=== PATIENT | male | born 1935 | race Caucasian/White ===

== ENCOUNTER → 2016-02-15 | Outpatient (CLI) | payer OTHER, BC ==
--- NOTE | 2016-02-16 10:23 | DI ---
History: Productive cough. Also: Prostate carcinoma. Two-view chest x-ray. Prior examination: None. Findings: Overall bone mineral density is markedly increased for age. This applies to the thoracic sp ine as well as ribs, indicating extensive metastatic/osteoblastic bone disease from prostate carcinom a. There is a Mediport catheter entering via the left side, tip at the cavoatrial junction. No cardia c enlargement is seen. This bony tissue renders interpretation of the lungs somewhat difficult but there does appear to be a n infiltrate in the left lung base and possibly a small left pleural effusion. Impression: Probable small subsegmental left lower lobe infiltrate, small pleural effusion. Proper position Mediport catheter Extensive osteoblastic metastatic disease
== END ==
LOC: RAD 16:01
PROVIDERS: ATTEND Nurse Practitioner
DX: R05 Cough (principal); J18.1 Lobar pneumonia, unspecified organism; J90 Pleural effusion, not elsewhere classified; R63.4 Abnormal weight loss; F17.210 Nicotine dependence, cigarettes, uncomplicated
CPT/HCPCS: 71020; 99214; G0463

== ENCOUNTER → 2016-02-24 | Outpatient (CLI) | payer OTHER, BC ==
--- NOTE | 2016-02-24 12:09 | DI ---
PA /LATERAL CHEST X-RAY, 02/24/2016 11:29 AM : Clinical History: Cough with expectoration. Previous Exam: 02/15/2016. There is no acute soft tissue or bony abnormality. Blastic metastases are present in the spine and ri bs. This would be consistent with prostate cancer. Heart size is normal. There is no acute infiltrate or effusion. There is centrilobular emphysema. Mediastinal structures are normal. There are no pulmo nary nodules. Readin. No acute infiltrate or effusion is present. There is centrilobular emphysema. 2. Diffuse blastic metastatic disease is present consistent with prostate cancer.
[2016-02-24 12:23] LABS: BASOPHILS # (AUTO) 0.03 10*3/UL; BASOPHILS % (AUTO) 0.3 % (0-1); EOSINOPHILS % (AUTO) 0.1 % (0-8); HEMATOCRIT 33.8 % (42.0-52.0); HEMOGLOBIN 10.8 g/dL (14.0-18.0); IMM GRAN % (AUTO) 0.6 % (0-5); IMM GRAN# (AUTO) 0.06 10*3/UL; LYMPHOCYTES # (AUTO) 1.18 10*3/uL; LYMPHOCYTES % (AUTO) 11.4 % (10-50); MEAN CORPUSCULAR HEMOGLOBIN 29.6 PG (27-31); MEAN PLATELET VOLUME 8.7 FL (7.4-12.2); MONOCYTES # (AUTO) 1.62 10*3/UL (0.3-0.8); MONOCYTES % (AUTO) 15.7 % (5-15); NEUTROPHILS # (AUTO) 7.44 10*3/UL; NEUTROPHILS % (AUTO) 71.9 % (50-80); RDW COEFFICIENT OF VARIATION 15.1 % (11.5-14.5); RED BLOOD COUNT 3.65 10^6/uL (4.70-6.10); WHITE BLOOD COUNT 10.34 10^3/uL (4.8-10.8)
[2016-02-24 12:35] LABS: PLATELET MORPHOLOGY COMMENT NORMAL MORPHOLOGY (NORM)
== END ==
LOC: MOB RAD 11:30
PROVIDERS: ATTEND Nurse Practitioner Family
DX: J18.1 Lobar pneumonia, unspecified organism (principal); J43.2 Centrilobular emphysema; F17.210 Nicotine dependence, cigarettes, uncomplicated
CPT/HCPCS: 36415; 71020; 85025; 99214

== ENCOUNTER → 2016-03-03 | Outpatient (CLI) | payer OTHER, BC ==
[2016-03-03 10:19] LABS: BASOPHILS # (AUTO) 0.03 10*3/UL; BASOPHILS % (AUTO) 0.4 % (0-1); EOSINOPHILS % (AUTO) 1.6 % (0-8); HEMATOCRIT 31.9 % (42.0-52.0); HEMOGLOBIN 10.2 g/dL (14.0-18.0); IMM GRAN % (AUTO) 0.3 % (0-5); IMM GRAN# (AUTO) 0.02 10*3/UL; LYMPHOCYTES # (AUTO) 1.47 10*3/uL; LYMPHOCYTES % (AUTO) 19.1 % (10-50); MEAN CORPUSCULAR HEMOGLOBIN 29.7 PG (27-31); MEAN PLATELET VOLUME 7.9 FL (7.4-12.2); MONOCYTES % (AUTO) 10.4 % (5-15); NEUTROPHILS # (AUTO) 5.27 10*3/UL; NEUTROPHILS % (AUTO) 68.2 % (50-80); RDW COEFFICIENT OF VARIATION 14.9 % (11.5-14.5); RED BLOOD COUNT 3.44 10^6/uL (4.70-6.10); WHITE BLOOD COUNT 7.71 10^3/uL (4.8-10.8)
[2016-03-03 10:29] LABS: PLATELET MORPHOLOGY COMMENT NORMAL MORPHOLOGY (NORM)
[2016-03-03 10:46] LABS: BILIRUBIN,TOTAL 0.2 mg/dL (0.3-1.2); CALCIUM 8.7 mg/dL (8.7-10.7); POTASSIUM 4.5 meq/L (3.8-5.2); TOTAL PROTEIN 6.1 g/dL (6.1-8.0)
== END ==
LOC: LAB 09:58
PROVIDERS: ATTEND Radiology Radiation Oncology
DX: C61 Malignant neoplasm of prostate (principal)
CPT/HCPCS: 36415; 80053; 85025

== ENCOUNTER → 2016-05-30 | Outpatient (CLI) | payer OTHER, BC ==
[2016-05-30 14:37] LABS: HEMATOCRIT 39.9 % (42.0-52.0); HEMOGLOBIN 13.1 g/dL (14.0-18.0); MEAN CORPUSCULAR HEMOGLOBIN 28.7 PG (27-31); MEAN CORPUSCULAR HGB CONC 32.8 g/dL (33-37); MEAN CORPUSCULAR VOLUME 87.5 FL (80-90); MEAN PLATELET VOLUME 8.9 FL (7.4-12.2); RED BLOOD COUNT 4.56 10^6/uL (4.70-6.10)
[2016-05-30 15:41] LABS: CALCIUM 8.8 mg/dL (8.7-10.7); SERUM ALBUMIN 3.9 g/dL (3.5-4.8)
[2016-05-30 15:46] LABS: BAND NEUTROPHILS % 0 % (0-10); LYMPHOCYTES % (MANUAL) 13 % (10-50); MONOCYTES % (MANUAL) 6 % (0-12); NEUTROPHILS % (MANUAL) 81 % (50-80); PLATELET MORPHOLOGY COMMENT NORMAL MORPHOLOGY (NORM); RBC MORPHOLOGY COMMENT NORMAL MORPHOLOGY (NORM); WBC MORPHOLOGY COMMENT NORMAL MORPHOLOGY (NORM)
[2016-05-30 15:47] LABS: BASOPHILS % (MANUAL) 0 % (0-1); EOSINOPHILS % (MANUAL) 0 % (0-8)
== END ==
LOC: LAB 14:23
PROVIDERS: ATTEND Internal Medicine
DX: C61 Malignant neoplasm of prostate (principal)
CPT/HCPCS: 36415; 80053; 84153; 85007

== ENCOUNTER 2016-09-10 08:41 | Inpatient (IN) | payer OTHER, BC ==
[2016-09-10] MEDS ORDERED: IPRATROPIUM/ALBUTEROL SULFATE 3 ML NEB NEB ONE (08:56)
[2016-09-10] MEDS ORDERED: DEXAMETHASONE PF 10 MG/1 ML VIAL IVP ONE (08:57)
[2016-09-10] MEDS ORDERED: Sodium Chloride 0.9% 1,000 ML PRIMARY IV ONE ×2 (09:15→23:46)
[2016-09-10] MEDS ORDERED: ONDANSETRON 4 MG/2 ML VIAL IVP ONE (09:15)
--- NOTE | 2016-09-10 09:22 | PDOC ---
Dyspnea HPI - General Chief Complaint: Respiratory Complaint Stated Complaint: DIFFICULTY BREATHING Date Seen by Provider: 09/10/16 Time Seen by Provider: 09:17 Source: POSITIVE: Patient, Spouse, EMS Exam Limitations: POSITIVE: No limitations Treatment Prior to Arrival: REPORTS: Oxygen, Albuterol Neb Treatment Nurse's Notes Reviewed & Considered: Yes EMS Report Reviewed & Considered: Verbal - History of Present Illness Initial Comments: This is a pleasant 81-year-old male who comes in today with chief complaint of shortness of breath. Mr. Latif presently is undergoing treatment for metastatic prostate cancer that has metastasized to his bone. His oncologist started him on amoxicillin and dexamethasone Sunday. Last night at approximately 10 PM EMS was summoned to his house because of his increasing shortness of breath. At that time they provided him with a albuterol treatment and he refused transport. This morning his family has brought him in because of his increased shortness of breath. It is requiring 2 L oxygen via nasal cannula to maintain his oxygen saturations at 92%. He denies any fevers chills or sweats, no nausea vomiting or diarrhea, no rashes, no headache. He does have shortness of breath and a cough. Patient continues to smoke, and his fingernails are yellowed from tobacco smoke. He is barrel chested. Body Location Affected: REPORTS: Chest Timing: REPORTS: Gradual, Getting Worse Duration: >24 hours Severity: Severe Initiating Event: REPORTS: Upper Respiratory Illness Associated Symptoms: REPORTS: Chest Heaviness, Productive Cough, Ankle Swelling Similar Symptoms Previously: Yes Recently seen/treated/hospitalized: Yes Any Prior Injuries Related to Current Complaint?: No - Patient Home Medications Home Medications: Home Medications Naproxen Sodium [Aleve] 220 mg PO BID PRN 01/09/12 Ascorbic Acid [Vitamin C] 1 tab PO QD tab 12/03/14 Cholecalciferol (Vitamin D3) [Vitamin D] 1 cap PO QD cap 12/03/14 Docusate Sodium [Stool Softener] 2 cap PO BID cap 12/03/14 Inulin/Chromium Picolinate [Fiber Gummies] 2 each PO BID tab 12/03/14 Albuterol Neb Soln 0.083% 1 unit NEB QID #120 vial 04/19/16 Amoxicillin 500 mg PO TID 09/10/16 Dexamethasone 4 mg PO DAILY 09/10/16 Diethylstilbestrol 1 gm PO DAILY 09/10/16 Mayra Root 500 mg PO DAILY 09/10/16 Venlafaxine HCl [Venlafaxine HCl ER] 150 mg PO DAILY 09/10/16 - Patient Allergies Allergies/Adverse Reactions: Allergies Allergy/AdvReac Type Severity Reaction Status Date / Time No Known Allergies Allergy Verified 09/10/16 08:49 Past Medical History - heen HEENT History: Denies History Cardiovascular History: Denies History Respiratory History: Denies History Gastrointestinal History: Denies History Genitourinary History: Denies History Endocrine History: Denies History Musculoskeletal History: Arthritis, Back Pain Prosthesis or Implant: No Additional Musculoskeletal History: SURGERY IN 2003 (CERVICAL) UNSURE WHAT BELIEVES TRIMMED UP Neurological History: Denies History Blood Disorders: Denies History Psychiatric History: Denies History Cancer History: Denies History Alcohol Use: None Substance Use Type: None Previous Surgical History: Yes Anesthesia Reactions: No Malignant Hyperthermia: No ROS - Limitations ROS Limitations: No Limitations Constitution: REPORTS: Denies Symptoms Cardiovascular: REPORTS: Heart Racing Respiratory: REPORTS: Cough Productive, Shortness Of Breath Neurological: REPORTS: Denies Neuro Symptoms Gastrointestinal: REPORTS: Denies GI Symptoms Endocrine: REPORTS: Denies Symptoms Musculoskeletal: REPORTS: Denies MS Symptoms Genitourinary: REPORTS: Denies Symptoms Eyes: REPORTS: Denies Symptoms ENT: REPORTS: Denies Symptoms Skin: REPORTS: Denies Skin Symptoms Lympathic: REPORTS: Denies Lympathic Symptoms Immunologic: POSITIVE: Denies Symptoms Psychiatric: POSITIVE: Denies Psych Symptoms Dyspnea Physical Exam - General Appearance General Appearance: REPORTS: Alert, Cooperative, No Acute Distress, No Evidence of Trauma - HEENT HEENT: POSITIVE: Head Inspection Nml, Eyes Inspection Nml, Ears Inspection Nml, Nose Inspection Nml, Oral/Dental Inspect. Nml, Pharynx Inspect. Nml, PERRL, EOMI - Neck Neck: REPORTS: Normal Inspection - Respiratory Respiratory: REPORTS: No Pleuritic Chest Pain, Speaks Full Sentences, Wheezes, Rales, Prolonged Expirations, Decreased Air Movement - Cardiovascular Cardiovascular: REPORTS: Heart Sounds Normal, No Murmur, No Gallop, No Friction Rub, No JVD, Tachycardia - Abdomen Abdomen: Soft: (All Quadrants), Normal Bowel Sounds: (All Quadrants), Denies Tenderness: (All Quadrants), No Splenomegaly: (All Quadrants), No Hepatomegaly: (All Quadrants), No Guarding: (All Quadrants), No Rebound: (All Quadrants), No Palpable Pulse: (All Quadrants), No Palpabale Mass: (All Quadrants), No Distention: (All Quadrants), No Rigidity: (All Quadrants) - Skin Skin: REPORTS: Intact, Normal For Race, Warm, Dry, No Rash - Extremities Extremity: Non-Tender: (All Extremities), Normal ROM: (All Extremities), Normal Inspection: (All Extremities), Pelvis Stable: (All Extremities) - Neurological / Psychological Neurological: POSITIVE: Oriented X3, Motor Normal, Sensation Normal Dyspnea Progress - Results Reviewed by me Xrays/CTs/US Reviewed by me: Yes Lab Results Reviewed: Yes Lab Results:: Laboratory Results 09/10/16 09/10/16 09/10/16 Range/Units 08:27 09:35 09:37 WBC 29.27 H (4.8-10.8) 10^3/uL RBC 3.85 L (4.70-6.10) 10^6/uL Hgb 12.0 L (14.0-18.0) g/dL Hct 35.8 L (42.0-52.0) % MCV 93.0 H (80-90) FL MCH 31.2 H (27-31) PG MCHC 33.5 (33-37) g/dL RDW Std Deviation 56.8 H (39-50) fL RDW Coeff of Rishi 17.6 H (11.5-14.5) % Plt Count 284 (140-350) 10*3/uL MPV 9.7 (7.4-12.2) FL Neutrophils % (Manual) 84 H (50-80) % Band Neutrophils % 3 (0-10) % Lymphocytes % (Manual) 11 (10-50) % Monocytes % (Manual) 2 (0-12) % Eosinophils % (Manual) 0 (0-8) % Basophils % (Manual) 0 (0-1) % Metamyelocytes % 0 % Myelocytes % 0 % Promyelocytes % 0 % Blast Cells 0 (0-1) % WBC Morphology Comment See comments (NORM) Plt Morphology Comment Normal morphology (NORM) RBC Morph Comment See comments (NORM) PT 9.9 (9.7-11.4) secs INR 0.93 (0.00-5.90) N/A D-Dimer 1.99 H (0.00-0.59) mg/L VBG pH 7.35 (7.32-7.42) VBG pCO2 40 L (45-55) mmHg VBG HCO3 22 (22-26) mmol/L VBG Base Excess -3 L (-2-2) MMOL/L Sodium 130 L (135-145) meq/L Potassium 4.7 (3.8-5.2) meq/L Chloride 101 (98-112) meq/L Carbon Dioxide 24 (23-33) meq/L Anion Gap 5 (5-20) BUN 14 (7-22) mg/dL Creatinine 1.0 (0.70-1.50) mg/dL Estimated GFR (>60 ml/min/1.73m(2)) BUN/Creatinine Ratio 14.00 (6-20) Glucose 134 H (78-110) mg/dL Calculated Osmolality 272.0 (267-292) mOsm/kg Lactic Acid 1.5 (0.70-2.10) MMOL/L Calcium 7.6 L (8.7-10.7) mg/dL Magnesium 1.9 (1.6-2.4) mg/dL Total Bilirubin 0.4 (0.3-1.2) mg/dL AST 14 L (21-57) IU/L ALT 22 (21-72) IU/L Alkaline Phosphatase 72 (38-126) IU/L Troponin I < 0.012 (< 0.040) ng/mL NT-Pro-B Natriuret Pep 798 H (0-450) PG/ML Total Protein 5.8 L (6.1-8.0) g/dL Albumin 3.2 L (3.5-4.8) g/dL Globulin 2.6 (2.50-4.10) g/dL Albumin/Globulin Ratio 1.20 L (1.3-2.0) mg/g EKG Interpretation:: POSITIVE: Normal Sinus Rhythm - Patient's Progress Pain Medication Addressed: POSITIVE: Not Applicable Re-Examine Time: 11:18 Status: POSITIVE: Improved MDM / ED Course: Patient was examined, an IV started, blood drawn and sent to the laboratory for studies, radiographic and EKG examinations were also obtained. Findings: CBC shows white count of 29.2. Comprehensive metabolic panel shows sodium of 130. D-dimer is elevated. Troponin is normal. EKG shows a sinus rhythm and a tachycardic rate, per my interpretation. Assessment: #1 hypoxia. #2 COPD exacerbation. #3 hyponatremia. Air Movement: POSITIVE: Fair Quality Measure Initiative: CP/AMI: POSITIVE: EKG Quality Measure Initiative: CAP: POSITIVE: SaO2, Antibiotic(s), CXR or CT - Consult Consult (If Yes, Name of Consulting MD & Time Called): Yes (Dr. Brasehr 11:20) Consulting MD will see pt:: POSITIVE: [facility] [place] Admit Counseled: POSITIVE: Patient, Family, RE: Lab Results, RE: Radiology Results, RE : DX Patient Care Time - Estimated PCT Patient Care Time (In Minutes): 45 Vital Signs - Recent Vital Signs Vital Signs: Vital Signs (Last 8 hours) Temp Pulse Resp BP Pulse Ox 09/10/16 08:41 96.0 F L 114 H 32 H 126/77 92 - VS Reviewed Vital Signs Reviewed: Yes Discharge Clinical Impression: Respiratory tract infection Discharge Disposition: Admit to Inpatient Condition: Fair Patient Instructions Given at Discharge: COPD (Chronic Obstructive Pulmonary Disease) (ED) Date Decision to Admit to Inpatient: 09/10/16 Time Decision to Admit to Inpatient: 11:21
[2016-09-10 09:26] LABS: HEMATOCRIT 35.8 % (42.0-52.0); MEAN CORPUSCULAR HEMOGLOBIN 31.2 PG (27-31); MEAN CORPUSCULAR HGB CONC 33.5 g/dL (33-37); MEAN PLATELET VOLUME 9.7 FL (7.4-12.2); RED BLOOD COUNT 3.85 10^6/uL (4.70-6.10)
[2016-09-10 09:45] LABS: VENOUS PH 7.35 (7.32-7.42)
[2016-09-10 09:48] LABS: CALCIUM 7.6 mg/dL (8.7-10.7); MAGNESIUM 1.9 mg/dL (1.6-2.4); SERUM ALBUMIN 3.2 g/dL (3.5-4.8)
[2016-09-10 09:59] LABS: PLATELET MORPHOLOGY COMMENT NORMAL MORPHOLOGY (NORM); RBC MORPHOLOGY COMMENT SEE COMMENTS (NORM)
[2016-09-10 10:00] LABS: WBC MORPHOLOGY COMMENT SEE COMMENTS (NORM)
[2016-09-10 10:01] LABS: BAND NEUTROPHILS % 3 % (0-10); BASOPHILS % (MANUAL) 0 % (0-1); EOSINOPHILS % (MANUAL) 0 % (0-8); LYMPHOCYTES % (MANUAL) 11 % (10-50); METAMYELOCYTES % 0 %; MONOCYTES % (MANUAL) 2 % (0-12); MYELOCYTES % 0 %; NEUTROPHILS % (MANUAL) 84 % (50-80); PROMYELOCYTES % 0 %
[2016-09-10] MEDS ORDERED: cefTRIAXone Inj 2 GM in Sodium Chloride 0.9% 100 ML IV ONE (10:02)
[2016-09-10] MEDS ORDERED: AZITHROMYCIN 250 MG TABLET PO ONE (10:02)
[2016-09-10] MEDS ORDERED: NAPROXEN SODIUM 220 MG PO PRN (11:40)
[2016-09-10] MEDS ORDERED: ONDANSETRON 4 MG/2 ML VIAL IVP PRN (11:40)
[2016-09-10] MEDS ORDERED: ACETAMINOPHEN 325 MG TABLET PO PRN (11:40)
[2016-09-10] MEDS ORDERED: LIDOCAINE W/ SODIUM BICARB 0.5 ML SYR SUBD PRN (11:40)
[2016-09-10] MEDS ORDERED: CHOLECALCIFEROL PO SCH (11:45)
[2016-09-10] MEDS ORDERED: ASCORBIC ACID PO SCH (11:45)
--- NOTE | 2016-09-10 11:45 | DI ---
HISTORY: Prostate cancer. COMPARISON: 02/24/16. TECHNIQUE: Single imaging. FINDINGS: There is a catheter with its tip projected over the SVC. Bibasilar opacities suggestive of atelectasis with adjacent effusions. Superimposed infection, or metastases not excluded. The bones appear slightly sclerosed, and this can be correlated with a bone scan. IMPRESSION: 1. Bibasilar opacities suggestive of atelectasis with adjacent effusions. Superimposed infection, or metastases not excluded. 2. The bones appear slightly sclerosed, and this can be correlated with a bone scan. NOTIFICATION: The above findings were phoned to Yesi Mcdermott in the ER Department on 09/10/2016 at 1 :59 pm EST.
--- NOTE | 2016-09-10 11:49 | DI ---
HISTORY: Elevated d-dimer. Metastatic prostate cancer. COMPARISON: 07/11/14. TECHNIQUE: Contiguous axial images of the chest were obtained from the lung apices through the adren al glands. FINDINGS: There are no focal filling defects noted within the pulmonary arteries to suggest pulmonary embolism. The heart is not enlarged. There is coronary artery calcification. There is diffuse emphysematous change with scattered areas of air trapping. There is no focal pulmonary mass. Ill-defined opacities in the left lung base suggest atelectasis, or evolving infection. Interstitial spread of metastases not excluded. The visualized osseous structures demonstrate diffuse sclerosis compatible with bony metastases. Thi s can be correlated with a bone scan. Limited sections of the upper abdomen demonstrate no acute findings. There is no large adrenal mass. Adrenal thickening probably relate to adrenal hyperplasia. The trachea, main, and segmental bronchi demonstrate no endobronchial lesions. There is no mediastinal, axillary, or hilar adenopathy. IMPRESSION: 1. No pulmonary embolism. 2. There is diffuse emphysematous change with scattered areas of air trapping. 3. Ill-defined opacities in the left lung base suggest atelectasis, or evolving infection. Interstit ial spread of metastases not excluded. 4. The visualized osseous structures demonstrate diffuse sclerosis compatible with bony metastases. This can be correlated with a bone scan. NOTIFICATION: The above findings were phoned to Yesi Mcfadden in the ER Department on 09/10/2016 at 1:59 pm EST.
--- NOTE | 2016-09-10 13:01 | EKG ---
[address] [address] Measurements Intervals [place] Rate: 108 P: 85 NC: 129 QRS: 85 QRSD: 106 T: 63 QT: 325 QTc: 389 Interpretive Statements SINUS TACHYCARDIA ABNORMAL RHYTHM ECG No previous ECG available for comparison Electronically Signed On 09-10-16 14:40:00 MDT by Farhad Bishop [email or web address]
[2016-09-10] MEDS: NORMAL SALINE 10 ML SYRINGE FLUSH IVP PRN ×3 (13:48→23:59)
[2016-09-10] MEDS: methylPREDNISolone 125 MG/2 ML VIAL IVP SCH ×3 (13:48→23:57)
--- NOTE | 2016-09-10 14:54 | PDOC ---
History and Physical - History of Present Illness Date and Time of Service: 09/10/2016, 1445 Chief Complaint: Shortness of breath History of Present Illness: This is a pleasant 81-year-old male who has prostate cancer with metastatic lesions and is on chemotherapy the past 2-1/2 years, tobacco user, who presents accompanied with his family with complaints of shortness of breath that has acute onset as of Sunday. No fevers or chills. Patient has had a pretty bad cough with the shortness of breath. He had a CT scan done by his oncologist on Sunday that showed "bronchitis" and he was placed on amoxicillin and increased steroids. The shortness breath is persisted and he came in for evaluation. He is normally not on oxygen but required 2 L per nasal cannula to maintain his oxygen saturations. He's never been told he has COPD or emphysema, but CT scans done here today definitely show that he has diffuse emphysema. There was a questionable left lower lobe early pneumonia versus lymphangitic spread of cancer. Patient smokes a pack per day. He does feel better with the oxygen, but there were no exacerbating factors outside the hospital. Things just seem to get worse. He is due for chemotherapy cycle sometime around the of this month. She had never been told he had COPD before. Past Medical History Medical History: 1. Prostate cancer with metastatic disease. 2. Renal artery aneurysm. Surgical History: None Pertinent Family History: Significant for lymphoma and his mother and emphysema in his father. Past Social History: Smoker. Been 59 years. 2 children that are described as healthy. 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 No alcohol. Tobacco Use: Current Every Day Smoker Substance Use Type: None Alcohol Use: None Medication / Allergies Home Medications: Home Medications Medication Instructions Recorded Confirmed Type Naproxen Sodium [Aleve] 220 mg PO BID PRN 01/09/12 09/10/16 History Ascorbic Acid [Vitamin C] 1 tab PO QD tab 12/03/14 09/10/16 History Cholecalciferol (Vitamin D3) 1 cap PO QD cap 12/03/14 09/10/16 History [Vitamin D] Docusate Sodium [Stool Softener] 2 cap PO BID cap 12/03/14 09/10/16 History Inulin/Chromium Picolinate [Fiber 2 each PO BID tab 12/03/14 History Gummies] Albuterol Neb Soln 0.083% 1 unit NEB QID #120 vial 04/19/16 09/10/16 Clinic Amoxicillin 500 mg PO TID 09/10/16 09/10/16 History Dexamethasone 4 mg PO DAILY 09/10/16 09/10/16 History Diethylstilbestrol 1 gm PO DAILY 09/10/16 09/10/16 History Mayra Root 500 mg PO DAILY 09/10/16 09/10/16 History Venlafaxine HCl [Venlafaxine HCl 150 mg PO DAILY 09/10/16 09/10/16 History ER] Allergies/Adverse Reactions: Allergies Allergy/AdvReac Type Severity Reaction Status Date / Time No Known Allergies Allergy Verified 09/10/16 11:58 Review of Systems - Review of Systems All Systems: Reviewed & No Additional Complaints Except as Stated (I did a 12 point review systems and it is negative other than that discussed in the history of present illness and that noted below. He has lost about 40 pounds since he started chemotherapy. His appetite fluctuates.) - Constitutional Constitutional: REPORTS: Weight Loss - Respiratory Respiratory: REPORTS: See HPI Exam - Vitals Vital Signs: Vital Signs Temperature 97.6 F Temperature Source Temporal Artery Scan Pulse Rate [Apical] 100 Pulse Rate [Pulse Oximeter 104 Right] Pulse Rate 105 Respiratory Rate 28 Blood Pressure [Right Arm] 115/65 Blood Pressure 100/56 Pulse Ox 91 Oxygen Flow Rate 2 Oxygen Delivery Method Nasal Cannula Height 5 ft 9 in Weight 138 lb 2 oz - General General Appearance: POSITIVE: No Acute Distress, Cooperative - Head Head Exam: POSITIVE: Normal Inspection, Normocephalic, Atraumatic Additional Head Exam Details: Some temporal wasting. - Eye Eye Exam: POSITIVE: No Scleral Icterus - ENT ENT Exam: POSITIVE: Mucous Membranes Moist - Neck Neck Exam: POSITIVE: Normal Inspection, No Tenderness, No Thyromegaly - Respiratory Respiratory Exam: POSITIVE: Breathing Non Labored, Decreased Breath Sounds, Coarse Breath Sounds - Cardiovascular Cardiovascular Exam: POSITIVE: RRR, No Murmur, No Clicks, No Gallops, No Rubs, No JVD - GI/Abdominal GI/Abdominal Exam: POSITIVE: Normal Bowel Sounds, Non Tender, Non Distended, Soft - Rectal Rectal Exam: POSITIVE: Deferred - External Exam: POSITIVE: Deferred Exam: POSITIVE: Deferred - Extremities Extremities Exam: POSITIVE: No Edema Present, No Cyanosis Present, Clubbing Present - Back Back Exam: POSITIVE: Normal Inspection, No CVA Tenderness - Neurological Neurological Exam: POSITIVE: Alert, Oriented x 3, No Facial Droop, Speech Intact / Clear, Moves All Extremities Equally - Psychiatric Psychiatric Exam: POSITIVE: Normal Affect, Normal Mood - Central Line Examination Central Line Present on Admission: Yes Central Line Type: Med-Port Central Line Location: Subclavian (L) Central Line Site Observations: POSITIVE: Asymptomatic, Intact, Patent Results - Labs CBC and BMP: 09/10/16 08:27 09/10/16 09:35 Labs - Last 24 Hours: Laboratory Results 09/10/16 09/10/16 09/10/16 Range/Units 08:27 09:35 09:37 WBC 29.27 H (4.8-10.8) 10^3/uL RBC 3.85 L (4.70-6.10) 10^6/uL Hgb 12.0 L (14.0-18.0) g/dL Hct 35.8 L (42.0-52.0) % MCV 93.0 H (80-90) FL MCH 31.2 H (27-31) PG MCHC 33.5 (33-37) g/dL RDW Std Deviation 56.8 H (39-50) fL RDW Coeff of Rishi 17.6 H (11.5-14.5) % Plt Count 284 (140-350) 10*3/uL MPV 9.7 (7.4-12.2) FL Neutrophils % (Manual) 84 H (50-80) % Band Neutrophils % 3 (0-10) % Lymphocytes % (Manual) 11 (10-50) % Monocytes % (Manual) 2 (0-12) % Eosinophils % (Manual) 0 (0-8) % Basophils % (Manual) 0 (0-1) % Metamyelocytes % 0 % Myelocytes % 0 % Promyelocytes % 0 % Blast Cells 0 (0-1) % WBC Morphology Comment See comments (NORM) Plt Morphology Comment Normal morphology (NORM) RBC Morph Comment See comments (NORM) PT 9.9 (9.7-11.4) secs INR 0.93 (0.00-5.90) N/A D-Dimer 1.99 H (0.00-0.59) mg/L VBG pH 7.35 (7.32-7.42) VBG pCO2 40 L (45-55) mmHg VBG HCO3 22 (22-26) mmol/L VBG Base Excess -3 L (-2-2) MMOL/L Sodium 130 L (135-145) meq/L Potassium 4.7 (3.8-5.2) meq/L Chloride 101 (98-112) meq/L Carbon Dioxide 24 (23-33) meq/L Anion Gap 5 (5-20) BUN 14 (7-22) mg/dL Creatinine 1.0 (0.70-1.50) mg/dL Estimated GFR (>60 ml/min/1.73m(2)) BUN/Creatinine Ratio 14.00 (6-20) Glucose 134 H (78-110) mg/dL Calculated Osmolality 272.0 (267-292) mOsm/kg Lactic Acid 1.5 (0.70-2.10) MMOL/L Calcium 7.6 L (8.7-10.7) mg/dL Magnesium 1.9 (1.6-2.4) mg/dL Total Bilirubin 0.4 (0.3-1.2) mg/dL AST 14 L (21-57) IU/L ALT 22 (21-72) IU/L Alkaline Phosphatase 72 (38-126) IU/L Troponin I < 0.012 (< 0.040) ng/mL NT-Pro-B Natriuret Pep 798 H (0-450) PG/ML Total Protein 5.8 L (6.1-8.0) g/dL Albumin 3.2 L (3.5-4.8) g/dL Globulin 2.6 (2.50-4.10) g/dL Albumin/Globulin Ratio 1.20 L (1.3-2.0) mg/g - EKG Data -: EKG Interpreted by Me Rate: Tachycardia EKG Shows Normal: Sinus Rhythm - Imaging Status: Image Reviewed by Me (Chest x-ray looks significant for emphysema and possible left lower lobe findings of pneumonia. CT scan of the chest shows diffuse emphysema on my view and an early infiltrate in the left lower lobe versus lymphangitic spread versus atelectasis.) Assessment and Plan - Patient Problems (1) COPD exacerbation Current Visit: Yes Status: Acute (2) Prostate cancer metastatic to bone Current Visit: Yes Status: Acute - Assessment / Plan Additional Assessment/Plan Details: Admit the patient. Oxygen to keep saturations greater than 90% Continue home medications including dexamethasone and add on top of that Solu- Medrol IV antibiotics including Rocephin. Antiemetics as necessary. Breathing therapies and pulmonary toilet. Nicotine patch. May benefit from Pneumovax vaccine. I discussed CODE STATUS, the patient is not clear yet whether he wants to be full code or not but does not want any mechanical means of keeping alive. I discussed the risks and benefits fairly carefully to the patient and his family , but there still thought process on this issue. I discussed above plan with the patient and his family and they agreed.
[2016-09-10] MEDS ORDERED: Dexamethasone Tab 4 MG TABLET PO ONE (14:59)
[2016-09-10] MEDS ORDERED: ALBUTEROL SULFATE 2.5 MG/3 ML NEB SCH (15:00)
[2016-09-10] MEDS ORDERED: NICOTINE 21 MG /DAY PATCH TRANSDERM ONE (15:13)
[2016-09-10] MEDS ORDERED: ALBUTEROL SULFATE 2.5 MG/3 ML NEB PRN (15:34)
[2016-09-10] MEDS: GINGER ROOT 550 MG PO SCH (18:00)
[2016-09-10] MEDS: IPRATROPIUM/ALBUTEROL SULFATE 3 ML NEB NEB SCH (19:16)
[2016-09-10] MEDS: DOCUSATE 100 MG CAPSULE PO SCH (20:18)
[2016-09-10] MEDS: GUAIFENESIN 600 MG TABLET PO SCH (21:50)
[2016-09-10] MEDS ORDERED: GUAIFENESIN 600 MG TABLET PO ONE (22:08)
[2016-09-10] MEDS: CHROMIUM PICOLINATE PO SCH (22:29)
[2016-09-10] MEDS: INULIN PO SCH (22:29)
[2016-09-10] MEDS ORDERED: NORMAL SALINE 100 ML IV ONE (23:45)
[2016-09-11] MEDS: IPRATROPIUM/ALBUTEROL SULFATE 3 ML NEB NEB SCH ×2 (00:03→06:39)
[2016-09-11] MEDS ORDERED: Sodium Chloride 0.9% 1,000 ML PRIMARY IV ONE (01:00)
[2016-09-11] MEDS: Sodium Chloride 0.9% 1,000 ML PRIMARY IV SCH ×2 (02:45→11:43)
[2016-09-11 04:40] LABS: HEMATOCRIT 31.7 % (42.0-52.0); HEMOGLOBIN 10.3 g/dL (14.0-18.0); MEAN CORPUSCULAR HGB CONC 32.5 g/dL (33-37); MEAN CORPUSCULAR VOLUME 92.4 FL (80-90); MEAN PLATELET VOLUME 9.6 FL (7.4-12.2); RED BLOOD COUNT 3.43 10^6/uL (4.70-6.10)
[2016-09-11 04:47] LABS: BUN/CREATININE RATIO 15.55 (6-20); CALCIUM 7.3 mg/dL (8.7-10.7)
[2016-09-11 05:05] LABS: BAND NEUTROPHILS % 14 % (0-10); LYMPHOCYTES % (MANUAL) 11 % (10-50); NEUTROPHILS % (MANUAL) 72 % (50-80); PLATELET MORPHOLOGY COMMENT NORMAL MORPHOLOGY (NORM); RBC MORPHOLOGY COMMENT NORMAL MORPHOLOGY (NORM); WBC MORPHOLOGY COMMENT SEE COMMENTS (NORM)
[2016-09-11 05:06] LABS: BASOPHILS % (MANUAL) 0 % (0-1); EOSINOPHILS % (MANUAL) 0 % (0-8); METAMYELOCYTES % 2 %; MONOCYTES % (MANUAL) 1 % (0-12)
[2016-09-11] MEDS: methylPREDNISolone 125 MG/2 ML VIAL IVP SCH ×4 (06:03→23:50)
[2016-09-11] MEDS ORDERED: [UNRECOGNIZED DRUG - OTHER] PO SCH (09:00)
[2016-09-11] MEDS ORDERED: CHOLECALCIFEROL 1000 IU TABLET PO SCH (09:00)
[2016-09-11] MEDS ORDERED: ASCORBIC ACID 500 MG TABLET PO SCH (09:00)
[2016-09-11] MEDS: CHOLECALCIFEROL PO SCH (09:21)
[2016-09-11] MEDS: ASCORBIC ACID 500 MG PO SCH (09:22)
[2016-09-11] MEDS: GINGER ROOT 550 MG PO SCH ×3 (09:23→17:42)
[2016-09-11] MEDS: [UNRECOGNIZED DRUG - OTHER] PO SCH (09:24)
[2016-09-11] MEDS: VENLAFAXINE XR 75 MG CAP PO SCH (09:24)
[2016-09-11] MEDS: DOCUSATE 100 MG CAPSULE PO SCH ×2 (09:24→20:12)
[2016-09-11] MEDS: Dexamethasone Tab 4 MG TABLET PO SCH (09:25)
[2016-09-11] MEDS: NICOTINE 21 MG /DAY PATCH TRANSDERM SCH (09:26)
[2016-09-11] MEDS: ENOXAPARIN SODIUM 40 MG/0.4 ML SYRINGE SUBCUT SCH (09:26)
[2016-09-11] MEDS: INULIN PO SCH ×2 (09:39→21:22)
[2016-09-11] MEDS: CHROMIUM PICOLINATE PO SCH ×2 (09:39→21:22)
[2016-09-11] MEDS: cefTRIAXone Inj 2 GM in Sodium Chloride 0.9% 100 ML IV SCH (11:06)
[2016-09-11] MEDS ORDERED: CALCIUM CARBONATE 500 MG (TUMS) CHEWABLE TABLET PO PRN (11:44)
[2016-09-11] MEDS ORDERED: TIOTROPIUM BROMIDE 18 MCG CAPSULE INH ONE (12:02)
[2016-09-11] MEDS: TIOTROPIUM BROMIDE 18 MCG CAPSULE INH SCH (13:06)
--- NOTE | 2016-09-11 16:31 | PDOC(PROG) ---
Date and Time of Service: 09/11/2016, 1630 Interval History: Patient seen and examined earlier. Family present at bedside. Shortness of breath has improved. Still requiring a little oxygen. No chest pain, fevers, nausea or vomiting. Objective : Data - Labs CBC and BMP: 09/11/16 04:05 09/11/16 04:05 Labs - Last 24 Hours: Laboratory Results 09/10/16 09/11/16 Range/Units 22:53 04:05 WBC 39.39 H* (4.8-10.8) 10^3/uL RBC 3.43 L (4.70-6.10) 10^6/uL Hgb 10.3 L (14.0-18.0) g/dL Hct 31.7 L (42.0-52.0) % MCV 92.4 H (80-90) FL MCH 30.0 (27-31) PG MCHC 32.5 L (33-37) g/dL RDW Std Deviation 55.9 H (39-50) fL RDW Coeff of Rishi 17.4 H (11.5-14.5) % Plt Count 249 (140-350) 10*3/uL MPV 9.6 (7.4-12.2) FL Neutrophils % (Manual) 72 (50-80) % Band Neutrophils % 14 H (0-10) % Lymphocytes % (Manual) 11 (10-50) % Monocytes % (Manual) 1 (0-12) % Eosinophils % (Manual) 0 (0-8) % Basophils % (Manual) 0 (0-1) % Metamyelocytes % 2 % Myelocytes % Not Reportable Promyelocytes % Not Reportable Blast Cells Not Reportable WBC Morphology Comment See comments (NORM) Plt Morphology Comment Normal morphology (NORM) RBC Morph Comment Normal morphology (NORM) Sodium 131 L (135-145) meq/L Potassium 4.6 (3.8-5.2) meq/L Chloride 103 (98-112) meq/L Carbon Dioxide 20 L (23-33) meq/L Anion Gap 8 (5-20) BUN 14 (7-22) mg/dL Creatinine 0.9 (0.70-1.50) mg/dL Estimated GFR (>60 ml/min/1.73m(2)) BUN/Creatinine Ratio 15.55 (6-20) Glucose 142 H (78-110) mg/dL Calculated Osmolality 274.0 (267-292) mOsm/kg Lactic Acid 3.2 H 1.9 (0.70-2.10) MMOL/L Calcium 7.3 L (8.7-10.7) mg/dL Objective : Exam - General General Appearance: No Acute Distress, Cooperative Additional General Exam Details: Vital Signs - Last Taken Temperature 98.0 F 09/11/16 16:12 Pulse Rate 82 09/11/16 16:12 Respiratory Rate 24 09/11/16 16:12 Blood Pressure 130/70 09/11/16 16:12 Pulse Ox 93 09/11/16 16:12 - ENT ENT Exam: Mucous Membranes Moist - Respiratory Respiratory Exam: Decreased Breath Sounds, Wheezes - Cardiovascular Cardiovascular Exam: RRR, No Murmur, No Clicks, No Gallops, No Rubs, No JVD - GI/Abdominal GI/Abdominal Exam: Normal Bowel Sounds, Non Tender, Non Distended, Soft - Extremities Extremities Exam: No Edema Present, No Cyanosis Present, Clubbing Present - Neurological Neurological Exam: Alert, Oriented x 3, No Facial Droop, Speech Intact / Clear, Moves All Extremities Equally Additional Neurological Exam Details: Bilateral tremor. - Psychiatric Psychiatric Exam: Normal Affect, Normal Mood Assessment and Plan - Patient Problems (1) COPD exacerbation Current Visit: Yes Status: Acute (2) Prostate cancer metastatic to bone Current Visit: Yes Status: Acute (3) Essential tremor Current Visit: Yes Status: Acute - Assessment / Plan Additional Assessment/Plan Details: Overall, improved. White count is concerning but probably steroid induced and related to infection as well. Continue Rocephin, day #2 today. Change breathing treatments to do Spiriva and albuterol every 2 hours when necessary. Oxygen as necessary. Encouraged smoking cessation. If all goes well, may consider de-escalating the by mouth antibiotic tomorrow and we will see if the patient will require long-term oxygen for COPD.
[2016-09-11] MEDS: NORMAL SALINE 10 ML SYRINGE FLUSH IVP PRN ×2 (17:43→23:51)
[2016-09-11] MEDS: GUAIFENESIN 600 MG TABLET PO SCH (21:22)
[2016-09-12 05:13] LABS: HEMATOCRIT 29.1 % (42.0-52.0); HEMOGLOBIN 9.7 g/dL (14.0-18.0); MEAN CORPUSCULAR HEMOGLOBIN 30.8 PG (27-31); MEAN CORPUSCULAR HGB CONC 33.3 g/dL (33-37); MEAN CORPUSCULAR VOLUME 92.4 FL (80-90); MEAN PLATELET VOLUME 9.4 FL (7.4-12.2); RED BLOOD COUNT 3.15 10^6/uL (4.70-6.10)
[2016-09-12 05:26] LABS: CALCIUM 7.1 mg/dL (8.7-10.7); SERUM ALBUMIN 2.8 g/dL (3.5-4.8)
[2016-09-12 05:36] LABS: PLATELET MORPHOLOGY COMMENT NORMAL MORPHOLOGY (NORM); RBC MORPHOLOGY COMMENT NORMAL MORPHOLOGY (NORM); WBC MORPHOLOGY COMMENT NORMAL MORPHOLOGY (NORM)
[2016-09-12 05:37] LABS: BAND NEUTROPHILS % 17 % (0-10); BASOPHILS % (MANUAL) 0 % (0-1); EOSINOPHILS % (MANUAL) 0 % (0-8); LYMPHOCYTES % (MANUAL) 3 % (10-50); MONOCYTES % (MANUAL) 1 % (0-12); NEUTROPHILS % (MANUAL) 79 % (50-80)
[2016-09-12] MEDS: ALBUTEROL SULFATE 2.5 MG/3 ML NEB PRN ×3 (07:24→20:24)
[2016-09-12] MEDS: TIOTROPIUM BROMIDE 18 MCG CAPSULE INH SCH (07:28)
[2016-09-12] MEDS: NICOTINE 21 MG /DAY PATCH TRANSDERM SCH (08:08)
[2016-09-12] MEDS: GUAIFENESIN 600 MG TABLET PO SCH ×2 (08:09→20:21)
[2016-09-12] MEDS: CHOLECALCIFEROL PO SCH (08:09)
[2016-09-12] MEDS: [UNRECOGNIZED DRUG - OTHER] PO SCH (08:10)
[2016-09-12] MEDS: GINGER ROOT 550 MG PO SCH ×3 (08:10→18:03)
[2016-09-12] MEDS: ASCORBIC ACID 500 MG PO SCH (08:10)
[2016-09-12] MEDS: ENOXAPARIN SODIUM 40 MG/0.4 ML SYRINGE SUBCUT SCH (08:11)
[2016-09-12] MEDS: methylPREDNISolone 125 MG/2 ML VIAL IVP SCH (08:12)
[2016-09-12] MEDS: VENLAFAXINE XR 75 MG CAP PO SCH (08:12)
[2016-09-12] MEDS: DOCUSATE 100 MG CAPSULE PO SCH ×2 (08:13→20:21)
[2016-09-12] MEDS: Dexamethasone Tab 4 MG TABLET PO SCH (08:13)
[2016-09-12] MEDS: INULIN PO SCH ×2 (09:20→21:12)
[2016-09-12] MEDS: CHROMIUM PICOLINATE PO SCH ×2 (09:20→21:12)
[2016-09-12] MEDS: cefTRIAXone Inj 2 GM in Sodium Chloride 0.9% 100 ML IV SCH (10:16)
[2016-09-12] MEDS ORDERED: AZITHROMYCIN 250 MG TABLET PO ONE (13:03)
--- NOTE | 2016-09-12 14:51 | DI ---
XR CXR 2VW PA/LAT,09/12/2016 12:47 PM: Clinical History: Possible pneumonia with elevated white blood cell count. Previous Exam: None at this facility. Findings: PA and lateral views of the chest are obtained, and demonstrate diffuse COPD. There is airspace disea se within the left lung base which was seen on the prior exam this appears slightly improved today. There is a stable left chest port. Impression: Left lower lobe pneumonia and diffuse COPD unchanged from the prior exam.
--- NOTE | 2016-09-12 16:45 | PDOC(PROG) ---
Date and Time of Service: 09/12/2016, 1640 Interval History: No chest pain. No nausea or vomiting. Shortness breath is improved, cough is somewhat improved. The patient had Provenge sometime this past winter for his prostate cancer to help activate his T cells. I spoke with oncology about the patient's white blood cell count and they suggested doing flow cytometry along with peripheral smear which we have sent off. They did not think it was consistent with a leukemia. There were much more suspicious of an infectious or inflammatory process, coupled with steroids as the patient has been on Decadron since the end of April 2016. Further, we were able to find out that the patient had a bone marrow biopsy in 2014 that was normal. I repeated chest x-ray in case of lymphangitic spread, but again oncologist stated today that he did not feel that that would be something very commonly seen with prostate cancer, and I think the x-rays actually more consistent with pneumonia today. Objective : Data - Labs CBC and BMP: 09/12/16 04:30 09/12/16 04:30 Labs - Last 24 Hours: Laboratory Results 09/12/16 Range/Units 04:30 WBC 42.54 H* (4.8-10.8) 10^3/uL RBC 3.15 L (4.70-6.10) 10^6/uL Hgb 9.7 L (14.0-18.0) g/dL Hct 29.1 L (42.0-52.0) % MCV 92.4 H (80-90) FL MCH 30.8 (27-31) PG MCHC 33.3 (33-37) g/dL RDW Std Deviation 55.1 H (39-50) fL RDW Coeff of Rishi 17.1 H (11.5-14.5) % Plt Count 224 (140-350) 10*3/uL MPV 9.4 (7.4-12.2) FL Neutrophils % (Manual) 79 (50-80) % Band Neutrophils % 17 H (0-10) % Lymphocytes % (Manual) 3 L (10-50) % Monocytes % (Manual) 1 (0-12) % Eosinophils % (Manual) 0 (0-8) % Basophils % (Manual) 0 (0-1) % Metamyelocytes % Not Reportable Myelocytes % Not Reportable Promyelocytes % Not Reportable Blast Cells Not Reportable WBC Morphology Comment Normal morphology (NORM) Plt Morphology Comment Normal morphology (NORM) RBC Morph Comment Normal morphology (NORM) Sodium 132 L (135-145) meq/L Potassium 4.6 (3.8-5.2) meq/L Chloride 104 (98-112) meq/L Carbon Dioxide 23 (23-33) meq/L Anion Gap 5 (5-20) BUN 17 (7-22) mg/dL Creatinine 1.0 (0.70-1.50) mg/dL Estimated GFR (>60 ml/min/1.73m(2)) BUN/Creatinine Ratio 17.00 (6-20) Glucose 124 H (78-110) mg/dL Calculated Osmolality 276.0 (267-292) mOsm/kg Calcium 7.1 L (8.7-10.7) mg/dL Total Bilirubin 0.2 L (0.3-1.2) mg/dL AST 33 (21-57) IU/L ALT 23 (21-72) IU/L Alkaline Phosphatase 72 (38-126) IU/L Total Protein 5.3 L (6.1-8.0) g/dL Albumin 2.8 L (3.5-4.8) g/dL Globulin 2.5 (2.50-4.10) g/dL Albumin/Globulin Ratio 1.10 L (1.3-2.0) mg/g PSA Screen 567 H (0.006-4.00) ng/ml Objective : Exam - General General Appearance: No Acute Distress, Cooperative Additional General Exam Details: Vital Signs - Last Taken Temperature 98.2 F 09/12/16 16:06 Pulse Rate 89 09/12/16 16:06 Respiratory Rate 18 09/12/16 16:06 Blood Pressure 138/81 09/12/16 16:06 Pulse Ox 92 09/12/16 16:06 - Eye Eye Exam: No Scleral Icterus - ENT ENT Exam: Mucous Membranes Moist - Respiratory Respiratory Exam: Breathing Non Labored, Decreased Breath Sounds - Cardiovascular Cardiovascular Exam: RRR, No Murmur, No Clicks, No Gallops, No Rubs, No JVD - GI/Abdominal GI/Abdominal Exam: Normal Bowel Sounds, Non Tender, Non Distended, Soft - Extremities Extremities Exam: No Edema Present, No Cyanosis Present, Clubbing Present - Neurological Neurological Exam: Alert, Oriented x 3, No Facial Droop, Speech Intact / Clear, Moves All Extremities Equally Assessment and Plan - Patient Problems (1) Left lower lobe pneumonia Current Visit: Yes Status: Acute Qualifiers: Pneumonia type: due to unspecified organism Qualified Description: Pneumonia of left lower lobe due to infectious organism Qualifier Code(s) : (J18.1) Lobar pneumonia, unspecified organism (2) Leukocytosis Current Visit: Yes Status: Acute Qualifiers: Leukocytosis type: bandemia Qualified Description: Bandemia Qualifier Code(s): (D72.825) Bandemia (3) COPD exacerbation Current Visit: Yes Status: Acute (4) Prostate cancer metastatic to bone Current Visit: Yes Status: Acute (5) Essential tremor Current Visit: Yes Status: Acute - Assessment / Plan Additional Assessment/Plan Details: At this point, continue Rocephin and add Zithromax in case this is an atypical infection as well. The chest x-ray today on my view shows a more pronounced left lower lobe infiltrate. I think this is a pneumonia. Flow cytometry and peripheral blood smear will be ordered and are sent off. Continue oxygen and breathing therapies. Check labs tomorrow. I think the patient should remain here until we have results of flow cytometry and peripheral blood smear back. It is likely that white blood cells are elevated in the setting of inflammation, infection, and daily Decadron therapy. Leukemia, of course, is a possibility here, but I think less likely after seeing the chest x-ray. Doubt lymphangitic spread. Stop Solu-Medrol. Continue nicotine replacement.
--- NOTE | 2016-09-12 17:04 | EKG ---
[address] [address] Measurements Intervals [place] Rate: 82 P: 82 SD: 144 QRS: 89 QRSD: 109 T: 51 QT: 364 QTc: 402 Interpretive Statements SINUS RHYTHM WITH OCCASIONAL VENTRICULAR PREMATURE COMPLEXES Compared to ECG 09/10/2016 08:54:15 Ventricular premature complex(es) now present Sinus tachycardia no longer present Electronically Signed On 09-13-16 08:33:47 MDT by Erik Molina MD [email or web address]
[2016-09-13] MEDS: ALBUTEROL SULFATE 2.5 MG/3 ML NEB PRN ×6 (03:18→20:32)
[2016-09-13 05:52] LABS: HEMATOCRIT 30.9 % (42.0-52.0); HEMOGLOBIN 10.1 g/dL (14.0-18.0); MEAN CORPUSCULAR HEMOGLOBIN 30.1 PG (27-31); MEAN CORPUSCULAR HGB CONC 32.7 g/dL (33-37); MEAN CORPUSCULAR VOLUME 92.2 FL (80-90); MEAN PLATELET VOLUME 9.4 FL (7.4-12.2); RED BLOOD COUNT 3.35 10^6/uL (4.70-6.10)
[2016-09-13 06:12] LABS: CALCIUM 7.4 mg/dL (8.7-10.7)
[2016-09-13 06:30] LABS: PLATELET MORPHOLOGY COMMENT NORMAL MORPHOLOGY (NORM); RBC MORPHOLOGY COMMENT NORMAL MORPHOLOGY (NORM); WBC MORPHOLOGY COMMENT NORMAL MORPHOLOGY (NORM)
[2016-09-13 06:32] LABS: BAND NEUTROPHILS % 12 % (0-10); BASOPHILS % (MANUAL) 0 % (0-1); EOSINOPHILS % (MANUAL) 0 % (0-8); LYMPHOCYTES % (MANUAL) 6 % (10-50); METAMYELOCYTES % 2 %; MONOCYTES % (MANUAL) 1 % (0-12); NEUTROPHILS % (MANUAL) 79 % (50-80)
[2016-09-13] MEDS: GINGER ROOT 550 MG PO SCH ×3 (07:30→16:32)
[2016-09-13] MEDS: TIOTROPIUM BROMIDE 18 MCG CAPSULE INH SCH (07:49)
[2016-09-13] MEDS: VENLAFAXINE XR 75 MG CAP PO SCH (09:18)
[2016-09-13] MEDS: Dexamethasone Tab 4 MG TABLET PO SCH (09:18)
[2016-09-13] MEDS: ENOXAPARIN SODIUM 40 MG/0.4 ML SYRINGE SUBCUT SCH (09:19)
[2016-09-13] MEDS: DOCUSATE 100 MG CAPSULE PO SCH ×2 (09:19→20:55)
[2016-09-13] MEDS: NICOTINE 21 MG /DAY PATCH TRANSDERM SCH (09:19)
[2016-09-13] MEDS: [UNRECOGNIZED DRUG - OTHER] PO SCH (09:20)
[2016-09-13] MEDS: GUAIFENESIN 600 MG TABLET PO SCH ×2 (09:21→20:55)
[2016-09-13] MEDS: AZITHROMYCIN 250 MG TABLET PO SCH (09:26)
[2016-09-13] MEDS: ASCORBIC ACID 500 MG PO SCH (09:27)
[2016-09-13] MEDS: CHOLECALCIFEROL PO SCH (09:27)
[2016-09-13] MEDS: CHROMIUM PICOLINATE PO SCH ×2 (09:28→20:56)
[2016-09-13] MEDS: INULIN PO SCH ×2 (09:28→20:56)
[2016-09-13] MEDS: cefTRIAXone Inj 2 GM in Sodium Chloride 0.9% 100 ML IV SCH (09:48)
--- NOTE | 2016-09-13 16:04 | PDOC(PROG) ---
Date and Time of Service: 09/13/2016, 1603 Interval History: Feels better overall. Still requiring about 2 L of oxygen. No chest pain and no nausea and no vomiting. EKG and echocardiogram show some grade 1 diastolic dysfunction with some moderately thickened mitral valves and annular calcification but no stenosis or significant regurgitation. Objective : Data - Labs CBC and BMP: 09/13/16 05:12 09/13/16 05:12 Labs - Last 24 Hours: Laboratory Results 09/13/16 Range/Units 05:12 WBC 37.51 H* (4.8-10.8) 10^3/uL RBC 3.35 L (4.70-6.10) 10^6/uL Hgb 10.1 L (14.0-18.0) g/dL Hct 30.9 L (42.0-52.0) % MCV 92.2 H (80-90) FL MCH 30.1 (27-31) PG MCHC 32.7 L (33-37) g/dL RDW Std Deviation 54.5 H (39-50) fL RDW Coeff of Rishi 17.0 H (11.5-14.5) % Plt Count 238 (140-350) 10*3/uL MPV 9.4 (7.4-12.2) FL Neutrophils % (Manual) 79 (50-80) % Band Neutrophils % 12 H (0-10) % Lymphocytes % (Manual) 6 L (10-50) % Monocytes % (Manual) 1 (0-12) % Eosinophils % (Manual) 0 (0-8) % Basophils % (Manual) 0 (0-1) % Metamyelocytes % 2 % Myelocytes % Not Reportable Promyelocytes % Not Reportable Blast Cells Not Reportable WBC Morphology Comment Normal morphology (NORM) Plt Morphology Comment Normal morphology (NORM) RBC Morph Comment Normal morphology (NORM) Sodium 133 L (135-145) meq/L Potassium 4.0 (3.8-5.2) meq/L Chloride 105 (98-112) meq/L Carbon Dioxide 23 (23-33) meq/L Anion Gap 5 (5-20) BUN 19 (7-22) mg/dL Creatinine 1.0 (0.70-1.50) mg/dL Estimated GFR (>60 ml/min/1.73m(2)) BUN/Creatinine Ratio 19.00 (6-20) Glucose 92 (78-110) mg/dL Calculated Osmolality 277.0 (267-292) mOsm/kg Calcium 7.4 L (8.7-10.7) mg/dL Objective : Exam - General General Appearance: No Acute Distress, Cooperative Additional General Exam Details: Vital Signs - Last Taken Temperature 98.4 F 09/13/16 12:31 Pulse Rate 97 09/13/16 12:31 Respiratory Rate 20 09/13/16 12:31 Blood Pressure 124/66 09/13/16 12:31 Pulse Ox 93 09/13/16 12:31 On 2 L per nasal cannula - Eye Eye Exam: No Scleral Icterus - ENT ENT Exam: Mucous Membranes Moist - Respiratory Respiratory Exam: Breathing Non Labored, Decreased Breath Sounds - Cardiovascular Cardiovascular Exam: RRR, No Murmur, No Clicks, No Gallops, No Rubs, No JVD - GI/Abdominal GI/Abdominal Exam: Normal Bowel Sounds, Non Tender, Non Distended, Soft - Extremities Extremities Exam: No Edema Present, No Cyanosis Present, Clubbing Present - Neurological Neurological Exam: Alert, Oriented x 3, No Facial Droop, Speech Intact / Clear, Moves All Extremities Equally - Psychiatric Psychiatric Exam: Normal Affect, Normal Mood - Central Line Examination Central Line Present on Admission: Yes Central Line Location: Subclavian (L) Central Line Site Observations: Asymptomatic, Intact Assessment and Plan - Patient Problems (1) Left lower lobe pneumonia Current Visit: Yes Status: Acute Qualifiers: Pneumonia type: due to unspecified organism Qualified Description: Pneumonia of left lower lobe due to infectious organism Qualifier Code(s) : (J18.1) Lobar pneumonia, unspecified organism (2) Leukocytosis Current Visit: Yes Status: Acute Qualifiers: Leukocytosis type: bandemia Qualified Description: Bandemia Qualifier Code(s): (D72.825) Bandemia (3) COPD exacerbation Current Visit: Yes Status: Acute (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 Continue Rocephin and Zithromax. Likely the patient will need oxygen leaving the hospital. He'll probably need 2 L per nasal cannula. I have started Spiriva and I think that should continue. We will have the patient hold off on chemotherapy this coming week and the office will call him and reschedule an appointment. I discussed with them today. We are awaiting a peripheral blood smear and flow cytometry to ensure that the white blood cell count is infectious in nature and is not related to a leukemia or something of that nature. Still pending. Very encouraging that the white blood cell count dropped by 3000 overnight. Anticipate that we should have those results back in the next 24-48 hours. Check labs tomorrow.
[2016-09-14] MEDS: ALBUTEROL SULFATE 2.5 MG/3 ML NEB PRN ×4 (00:28→18:51)
[2016-09-14 05:49] LABS: HEMATOCRIT 32.6 % (42.0-52.0); HEMOGLOBIN 10.6 g/dL (14.0-18.0); MEAN CORPUSCULAR HEMOGLOBIN 30.1 PG (27-31); MEAN CORPUSCULAR HGB CONC 32.5 g/dL (33-37); MEAN CORPUSCULAR VOLUME 92.6 FL (80-90); MEAN PLATELET VOLUME 9.9 FL (7.4-12.2); RED BLOOD COUNT 3.52 10^6/uL (4.70-6.10)
[2016-09-14] MEDS: TIOTROPIUM BROMIDE 18 MCG CAPSULE INH SCH (06:30)
[2016-09-14 06:40] LABS: PLATELET MORPHOLOGY COMMENT NORMAL MORPHOLOGY (NORM); RBC MORPHOLOGY COMMENT NORMAL MORPHOLOGY (NORM); WBC MORPHOLOGY COMMENT NORMAL MORPHOLOGY (NORM)
[2016-09-14 06:45] LABS: BAND NEUTROPHILS % 10 % (0-10); BASOPHILS % (MANUAL) 0 % (0-1); EOSINOPHILS % (MANUAL) 0 % (0-8); LYMPHOCYTES % (MANUAL) 10 % (10-50); MONOCYTES % (MANUAL) 8 % (0-12); NEUTROPHILS % (MANUAL) 72 % (50-80)
[2016-09-14] MEDS: GINGER ROOT 550 MG PO SCH ×3 (07:20→16:55)
[2016-09-14] MEDS: VENLAFAXINE XR 75 MG CAP PO SCH (08:47)
[2016-09-14] MEDS: Dexamethasone Tab 4 MG TABLET PO SCH (08:47)
[2016-09-14] MEDS: AZITHROMYCIN 250 MG TABLET PO SCH (08:47)
[2016-09-14] MEDS: DOCUSATE 100 MG CAPSULE PO SCH ×2 (08:47→20:10)
[2016-09-14] MEDS: ENOXAPARIN SODIUM 40 MG/0.4 ML SYRINGE SUBCUT SCH (08:47)
[2016-09-14] MEDS: NICOTINE 21 MG /DAY PATCH TRANSDERM SCH (08:48)
[2016-09-14] MEDS: GUAIFENESIN 600 MG TABLET PO SCH ×2 (08:48→20:10)
[2016-09-14] MEDS: [UNRECOGNIZED DRUG - OTHER] PO SCH (08:50)
[2016-09-14] MEDS: CHROMIUM PICOLINATE PO SCH ×2 (08:57→20:11)
[2016-09-14] MEDS: INULIN PO SCH ×2 (08:57→20:11)
[2016-09-14] MEDS: ASCORBIC ACID 500 MG PO SCH (08:57)
[2016-09-14] MEDS: CHOLECALCIFEROL PO SCH (08:57)
[2016-09-14] MEDS: cefTRIAXone Inj 2 GM in Sodium Chloride 0.9% 100 ML IV SCH (09:47)
[2016-09-14] MEDS: NORMAL SALINE 10 ML SYRINGE FLUSH IVP PRN (09:47)
--- NOTE | 2016-09-14 10:13 | PDOC(PROG) ---
Date and Time of Service: 09/14/2016 10:13 AM Interval History: Subjective Patient came into the hospital because of history of shortness of breath that started last Sunday, there is some cough but is dry cough, no chest pain. He feels better compared to when he came in. Objective : Data - Labs CBC and BMP: 09/14/16 04:44 09/13/16 05:12 Labs - Last 24 Hours: Laboratory Results 09/14/16 Range/Units 04:44 WBC 25.35 H (4.8-10.8) 10^3/uL RBC 3.52 L (4.70-6.10) 10^6/uL Hgb 10.6 L (14.0-18.0) g/dL Hct 32.6 L (42.0-52.0) % MCV 92.6 H (80-90) FL MCH 30.1 (27-31) PG MCHC 32.5 L (33-37) g/dL RDW Std Deviation 55.3 H (39-50) fL RDW Coeff of Rishi 17.3 H (11.5-14.5) % Plt Count 226 (140-350) 10*3/uL MPV 9.9 (7.4-12.2) FL Neutrophils % (Manual) 72 (50-80) % Band Neutrophils % 10 (0-10) % Lymphocytes % (Manual) 10 (10-50) % Monocytes % (Manual) 8 (0-12) % Eosinophils % (Manual) 0 (0-8) % Basophils % (Manual) 0 (0-1) % Metamyelocytes % Not Reportable Myelocytes % Not Reportable Promyelocytes % Not Reportable Blast Cells Not Reportable WBC Morphology Comment Normal morphology (NORM) Plt Morphology Comment Normal morphology (NORM) RBC Morph Comment Normal morphology (NORM) Objective : Exam - General General Appearance: No Acute Distress, Cooperative - Head Head Exam: Normal Inspection - Eye Eye Exam: Normal Appearance - ENT ENT Exam: Normal Exam - Neck Neck Exam: Normal Inspection - Respiratory Additional Respiratory Exam Details: Decreased air entry otherwise clear - Cardiovascular Cardiovascular Exam: RRR - GI/Abdominal GI/Abdominal Exam: Normal Bowel Sounds, Non Tender, Non Distended, Soft - Rectal Rectal Exam: Deferred - External Exam: Deferred - Extremities Extremities Exam: Normal Inspection - Back Back Exam: Normal Inspection - Neurological Neurological Exam: Alert, Oriented x 3, CN II-XII Intact, No Facial Droop, Speech Intact / Clear - Psychiatric Psychiatric Exam: Normal Affect - Integumentary Integumentary Exam: Normal Color Assessment and Plan - Patient Problems (1) COPD exacerbation Current Visit: Yes Status: Acute Comment: This is secondary to pneumonia he was started on antibiotics and steroid. However steroid were discontinued because of high white count. He is improving continue antibiotics and bronchodilator. (2) Left lower lobe pneumonia Current Visit: Yes Status: Acute Comment: Continue antibiotics, we are still waiting for flow cytometry study. If the results are negative for leukemia then probably will send him home on oral antibiotics Qualifiers: Pneumonia type: due to unspecified organism Qualified Description: Pneumonia of left lower lobe due to infectious organism Qualifier Code(s) : (J18.1) Lobar pneumonia, unspecified organism (3) Leukocytosis Current Visit: Yes Status: Acute Comment: Probably secondary to the steroid and infection. It is coming down which is encouraging. Still waiting for cytometry Qualifiers: Leukocytosis type: bandemia Qualified Description: Bandemia Qualifier Code(s): (D72.825) Bandemia
[2016-09-15 06:23] LABS: HEMATOCRIT 32.4 % (42.0-52.0); HEMOGLOBIN 10.5 g/dL (14.0-18.0); MEAN CORPUSCULAR HGB CONC 32.4 g/dL (33-37); MEAN CORPUSCULAR VOLUME 92.6 FL (80-90); MEAN PLATELET VOLUME 9.9 FL (7.4-12.2)
[2016-09-15] MEDS: ALBUTEROL SULFATE 2.5 MG/3 ML NEB PRN (06:48)
[2016-09-15] MEDS: TIOTROPIUM BROMIDE 18 MCG CAPSULE INH SCH (06:49)
[2016-09-15] MEDS: GINGER ROOT 550 MG PO SCH (07:00)
[2016-09-15 07:17] LABS: PLATELET MORPHOLOGY COMMENT NORMAL MORPHOLOGY (NORM); RBC MORPHOLOGY COMMENT NORMAL MORPHOLOGY (NORM); WBC MORPHOLOGY COMMENT NORMAL MORPHOLOGY (NORM)
[2016-09-15 07:18] LABS: BAND NEUTROPHILS % 1 % (0-10); BASOPHILS % (MANUAL) 0 % (0-1); EOSINOPHILS % (MANUAL) 0 % (0-8); LYMPHOCYTES % (MANUAL) 25 % (10-50); MONOCYTES % (MANUAL) 3 % (0-12); NEUTROPHILS % (MANUAL) 71 % (50-80)
[2016-09-15 07:47] VITALS: RESP 18; TEMP 97.1
[2016-09-15] MEDS: Dexamethasone Tab 4 MG TABLET PO SCH (09:03)
[2016-09-15] MEDS: DOCUSATE 100 MG CAPSULE PO SCH (09:03)
[2016-09-15] MEDS: GUAIFENESIN 600 MG TABLET PO SCH (09:03)
[2016-09-15] MEDS: VENLAFAXINE XR 75 MG CAP PO SCH (09:04)
[2016-09-15] MEDS: AZITHROMYCIN 250 MG TABLET PO SCH (09:04)
[2016-09-15] MEDS: [UNRECOGNIZED DRUG - OTHER] PO SCH (09:05)
[2016-09-15] MEDS: ENOXAPARIN SODIUM 40 MG/0.4 ML SYRINGE SUBCUT SCH (09:06)
[2016-09-15] MEDS: NICOTINE 21 MG /DAY PATCH TRANSDERM SCH (09:06)
[2016-09-15] MEDS: CHROMIUM PICOLINATE PO SCH (09:07)
[2016-09-15] MEDS: INULIN PO SCH (09:07)
[2016-09-15] MEDS: ASCORBIC ACID 500 MG PO SCH (09:07)
[2016-09-15] MEDS: CHOLECALCIFEROL PO SCH (09:08)
[2016-09-15] MEDS: cefTRIAXone Inj 2 GM in Sodium Chloride 0.9% 100 ML IV SCH (09:10)
--- NOTE | 2016-09-15 11:07 | DCSUMMARY ---
Hospitalization Summary Admit Date: 09/10/16 Discharge Date: 09/15/16 Hospital Course: Discharge diagnoses 1. Left lower lobe pneumonia 2. COPD exacerbation secondary to the above 3. Prostate cancer with metastatic disease 4. Renal artery aneurysm 5. Leukocytosis reactive part secondary to the infection and part to the steroid, improving. Hospital course This is a 81 years old male with medical history significant for history of prostate cancer with metastasis on chemotherapy therapy has been on different kinds of chemotherapy the last 2 years, who presented to the hospital because of shortness of breath that started last Sunday. With the shortness of breath there was cough. He had a CT scan done by his oncologist that Sunday and it showed bronchitis and he was placed on amoxicillin increased the steroid. The shortness of breath persisted and he came in for evaluation. He is normally not on oxygen. But he required 2 L to maintain o2 saturation. Had a CT which showed emphysema and probably left lower lobe early pneumonia versus lymphangitic spread of cancer. Patient was admitted put on antibiotics IV, breathing treatment, continued with his usual dexamethasone and Solu-Medrol was added. Gradually he started to improve however his white count started to go up repeat x-ray showed the same finding with COPD and pneumonia in the left lower lung. This was discussed with the oncologist and they suggested flow cytometry as his white count went up to as high as 42,000 the steroid were discontinued and continued only with the dexamethasone. He continued antibiotics. Gradually his white count started to come down. I saw him later on during hospital stay he was feeling better denying complaint. On the day of discharge the result of the flow cytometry showed no immunophenotypic abnormalities. His white count went down to 18.5. Since he clinically felt better we thought that he could be discharged home and follow-up with his primary next week. We switched to antibiotics to by mouth. He was scheduled for chemotherapy next week and the Dr. Brasher spoke with them and it was postponed. He need to have a repeat x-ray in 4 weeks to ensure resolution. Laboratory Results 09/10/16 09/10/16 09/10/16 Range/Units 08:27 09:35 09:37 WBC 29.27 H (4.8-10.8) 10^3/uL RBC 3.85 L (4.70-6.10) 10^6/uL Hgb 12.0 L (14.0-18.0) g/dL Hct 35.8 L (42.0-52.0) % MCV 93.0 H (80-90) FL MCH 31.2 H (27-31) PG MCHC 33.5 (33-37) g/dL RDW Std Deviation 56.8 H (39-50) fL RDW Coeff of Rishi 17.6 H (11.5-14.5) % Plt Count 284 (140-350) 10*3/uL MPV 9.7 (7.4-12.2) FL Neutrophils % (Manual) 84 H (50-80) % Band Neutrophils % 3 (0-10) % Lymphocytes % (Manual) 11 (10-50) % Monocytes % (Manual) 2 (0-12) % Eosinophils % (Manual) 0 (0-8) % Basophils % (Manual) 0 (0-1) % Metamyelocytes % 0 % Myelocytes % 0 % Promyelocytes % 0 % Blast Cells 0 (0-1) % WBC Morphology Comment See comments (NORM) Plt Morphology Comment Normal morphology (NORM) RBC Morph Comment See comments (NORM) Smear Path Review (SEE COMMENT) PT 9.9 (9.7-11.4) secs INR 0.93 (0.00-5.90) N/A D-Dimer 1.99 H (0.00-0.59) mg/L VBG pH 7.35 (7.32-7.42) VBG pCO2 40 L (45-55) mmHg VBG HCO3 22 (22-26) mmol/L VBG Base Excess -3 L (-2-2) MMOL/L Sodium 130 L (135-145) meq/L Potassium 4.7 (3.8-5.2) meq/L Chloride 101 (98-112) meq/L Carbon Dioxide 24 (23-33) meq/L Anion Gap 5 (5-20) BUN 14 (7-22) mg/dL Creatinine 1.0 (0.70-1.50) mg/dL Estimated GFR (>60 ml/min/1.73m(2)) BUN/Creatinine Ratio 14.00 (6-20) Glucose 134 H (78-110) mg/dL Calculated Osmolality 272.0 (267-292) mOsm/kg Lactic Acid 1.5 (0.70-2.10) MMOL/L Calcium 7.6 L (8.7-10.7) mg/dL Magnesium 1.9 (1.6-2.4) mg/dL Total Bilirubin 0.4 (0.3-1.2) mg/dL AST 14 L (21-57) IU/L ALT 22 (21-72) IU/L Alkaline Phosphatase 72 (38-126) IU/L Troponin I < 0.012 (< 0.040) ng/mL NT-Pro-B Natriuret Pep 798 H (0-450) PG/ML Total Protein 5.8 L (6.1-8.0) g/dL Albumin 3.2 L (3.5-4.8) g/dL Globulin 2.6 (2.50-4.10) g/dL Albumin/Globulin Ratio 1.20 L (1.3-2.0) mg/g PSA Screen (0.006-4.00) ng/ml 09/10/16 09/11/16 09/12/16 Range/Units 22:53 04:05 04:30 WBC 39.39 H* 42.54 H* (4.8-10.8) 10^3/uL RBC 3.43 L 3.15 L (4.70-6.10) 10^6/uL Hgb 10.3 L 9.7 L (14.0-18.0) g/dL Hct 31.7 L 29.1 L (42.0-52.0) % MCV 92.4 H 92.4 H (80-90) FL MCH 30.0 30.8 (27-31) PG MCHC 32.5 L 33.3 (33-37) g/dL RDW Std Deviation 55.9 H 55.1 H (39-50) fL RDW Coeff of Rishi 17.4 H 17.1 H (11.5-14.5) % Plt Count 249 224 (140-350) 10*3/uL MPV 9.6 9.4 (7.4-12.2) FL Neutrophils % (Manual) 72 79 (50-80) % Band Neutrophils % 14 H 17 H (0-10) % Lymphocytes % (Manual) 11 3 L (10-50) % Monocytes % (Manual) 1 1 (0-12) % Eosinophils % (Manual) 0 0 (0-8) % Basophils % (Manual) 0 0 (0-1) % Metamyelocytes % 2 Not Reportable % Myelocytes % Not Reportable Not Reportable % Promyelocytes % Not Reportable Not Reportable % Blast Cells Not Reportable Not Reportable (0-1) % WBC Morphology Comment See comments Normal morphology (NORM) Plt Morphology Comment Normal morphology Normal morphology (NORM) RBC Morph Comment Normal morphology Normal morphology (NORM) Smear Path Review (SEE COMMENT) PT (9.7-11.4) secs INR (0.00-5.90) N/A D-Dimer (0.00-0.59) mg/L VBG pH (7.32-7.42) VBG pCO2 (45-55) mmHg VBG HCO3 (22-26) mmol/L VBG Base Excess (-2-2) MMOL/L Sodium 131 L 132 L (135-145) meq/L Potassium 4.6 4.6 (3.8-5.2) meq/L Chloride 103 104 (98-112) meq/L Carbon Dioxide 20 L 23 (23-33) meq/L Anion Gap 8 5 (5-20) BUN 14 17 (7-22) mg/dL Creatinine 0.9 1.0 (0.70-1.50) mg/dL Estimated GFR (>60 ml/min/1.73m(2)) BUN/Creatinine Ratio 15.55 17.00 (6-20) Glucose 142 H 124 H (78-110) mg/dL Calculated Osmolality 274.0 276.0 (267-292) mOsm/kg Lactic Acid 3.2 H 1.9 (0.70-2.10) MMOL/L Calcium 7.3 L 7.1 L (8.7-10.7) mg/dL Magnesium (1.6-2.4) mg/dL Total Bilirubin 0.2 L (0.3-1.2) mg/dL AST 33 (21-57) IU/L ALT 23 (21-72) IU/L Alkaline Phosphatase 72 (38-126) IU/L Troponin I (< 0.040) ng/mL NT-Pro-B Natriuret Pep (0-450) PG/ML Total Protein 5.3 L (6.1-8.0) g/dL Albumin 2.8 L (3.5-4.8) g/dL Globulin 2.5 (2.50-4.10) g/dL Albumin/Globulin Ratio 1.10 L (1.3-2.0) mg/g PSA Screen 567 H (0.006-4.00) ng/ml 09/12/16 09/13/16 09/14/16 Range/Units 14:09 05:12 04:44 WBC 37.51 H* 25.35 H (4.8-10.8) 10^3/uL RBC 3.35 L 3.52 L (4.70-6.10) 10^6/uL Hgb 10.1 L 10.6 L (14.0-18.0) g/dL Hct 30.9 L 32.6 L (42.0-52.0) % MCV 92.2 H 92.6 H (80-90) FL MCH 30.1 30.1 (27-31) PG MCHC 32.7 L 32.5 L (33-37) g/dL RDW Std Deviation 54.5 H 55.3 H (39-50) fL RDW Coeff of Rishi 17.0 H 17.3 H (11.5-14.5) % Plt Count 238 226 (140-350) 10*3/uL MPV 9.4 9.9 (7.4-12.2) FL Neutrophils % (Manual) 79 72 (50-80) % Band Neutrophils % 12 H 10 (0-10) % Lymphocytes % (Manual) 6 L 10 (10-50) % Monocytes % (Manual) 1 8 (0-12) % Eosinophils % (Manual) 0 0 (0-8) % Basophils % (Manual) 0 0 (0-1) % Metamyelocytes % 2 Not Reportable % Myelocytes % Not Reportable Not Reportable % Promyelocytes % Not Reportable Not Reportable % Blast Cells Not Reportable Not Reportable (0-1) % WBC Morphology Comment Normal morphology Normal morphology (NORM) Plt Morphology Comment Normal morphology Normal morphology (NORM) RBC Morph Comment Normal morphology Normal morphology (NORM) Smear Path Review See comments (SEE COMMENT) PT (9.7-11.4) secs INR (0.00-5.90) N/A D-Dimer (0.00-0.59) mg/L VBG pH (7.32-7.42) VBG pCO2 (45-55) mmHg VBG HCO3 (22-26) mmol/L VBG Base Excess (-2-2) MMOL/L Sodium 133 L (135-145) meq/L Potassium 4.0 (3.8-5.2) meq/L Chloride 105 (98-112) meq/L Carbon Dioxide 23 (23-33) meq/L Anion Gap 5 (5-20) BUN 19 (7-22) mg/dL Creatinine 1.0 (0.70-1.50) mg/dL Estimated GFR (>60 ml/min/1.73m(2)) BUN/Creatinine Ratio 19.00 (6-20) Glucose 92 (78-110) mg/dL Calculated Osmolality 277.0 (267-292) mOsm/kg Lactic Acid (0.70-2.10) MMOL/L Calcium 7.4 L (8.7-10.7) mg/dL Magnesium (1.6-2.4) mg/dL Total Bilirubin (0.3-1.2) mg/dL AST (21-57) IU/L ALT (21-72) IU/L Alkaline Phosphatase (38-126) IU/L Troponin I (< 0.040) ng/mL NT-Pro-B Natriuret Pep (0-450) PG/ML Total Protein (6.1-8.0) g/dL Albumin (3.5-4.8) g/dL Globulin (2.50-4.10) g/dL Albumin/Globulin Ratio (1.3-2.0) mg/g PSA Screen (0.006-4.00) ng/ml 09/15/16 Range/Units 04:30 WBC 18.59 H (4.8-10.8) 10^3/uL RBC 3.50 L (4.70-6.10) 10^6/uL Hgb 10.5 L (14.0-18.0) g/dL Hct 32.4 L (42.0-52.0) % MCV 92.6 H (80-90) FL MCH 30.0 (27-31) PG MCHC 32.4 L (33-37) g/dL RDW Std Deviation 54.5 H (39-50) fL RDW Coeff of Rishi 17.1 H (11.5-14.5) % Plt Count 208 (140-350) 10*3/uL MPV 9.9 (7.4-12.2) FL Neutrophils % (Manual) 71 (50-80) % Band Neutrophils % 1 (0-10) % Lymphocytes % (Manual) 25 (10-50) % Monocytes % (Manual) 3 (0-12) % Eosinophils % (Manual) 0 (0-8) % Basophils % (Manual) 0 (0-1) % Metamyelocytes % Not Reportable % Myelocytes % Not Reportable % Promyelocytes % Not Reportable % Blast Cells Not Reportable (0-1) % WBC Morphology Comment Normal morphology (NORM) Plt Morphology Comment Normal morphology (NORM) RBC Morph Comment Normal morphology (NORM) Smear Path Review (SEE COMMENT) PT (9.7-11.4) secs INR (0.00-5.90) N/A D-Dimer (0.00-0.59) mg/L VBG pH (7.32-7.42) VBG pCO2 (45-55) mmHg VBG HCO3 (22-26) mmol/L VBG Base Excess (-2-2) MMOL/L Sodium (135-145) meq/L Potassium (3.8-5.2) meq/L Chloride (98-112) meq/L Carbon Dioxide (23-33) meq/L Anion Gap (5-20) BUN (7-22) mg/dL Creatinine (0.70-1.50) mg/dL Estimated GFR (>60 ml/min/1.73m(2)) BUN/Creatinine Ratio (6-20) Glucose (78-110) mg/dL Calculated Osmolality (267-292) mOsm/kg Lactic Acid (0.70-2.10) MMOL/L Calcium (8.7-10.7) mg/dL Magnesium (1.6-2.4) mg/dL Total Bilirubin (0.3-1.2) mg/dL AST (21-57) IU/L ALT (21-72) IU/L Alkaline Phosphatase (38-126) IU/L Troponin I (< 0.040) ng/mL NT-Pro-B Natriuret Pep (0-450) PG/ML Total Protein (6.1-8.0) g/dL Albumin (3.5-4.8) g/dL Globulin (2.50-4.10) g/dL Albumin/Globulin Ratio (1.3-2.0) mg/g PSA Screen (0.006-4.00) ng/ml Discharge suction Diet regular Activity as started Medications Home Medications Medication Instructions Recorded Confirmed Type Naproxen Sodium [Aleve] 220 mg PO BID PRN 01/09/12 09/10/16 History Ascorbic Acid [Vitamin C] 1 tab PO QD tab 12/03/14 09/10/16 History Cholecalciferol (Vitamin D3) 1 cap PO QD cap 12/03/14 09/10/16 History [Vitamin D] Docusate Sodium [Stool Softener] 2 cap PO BID cap 12/03/14 09/10/16 History Inulin/Chromium Picolinate [Fiber 2 each PO BID tab 12/03/14 History Gummies] Albuterol Neb Soln 0.083% 1 unit NEB QID #120 vial 04/19/16 09/10/16 Clinic Dexamethasone 4 mg PO DAILY 09/10/16 09/10/16 History Diethylstilbestrol 1 gm PO DAILY 09/10/16 09/10/16 History Mayra Root 500 mg PO DAILY 09/10/16 09/10/16 History Venlafaxine HCl [Venlafaxine HCl 150 mg PO DAILY 09/10/16 09/10/16 History ER] Azithromycin [Zithromax] 250 mg PO DAILY #4 tab 09/15/16 Rx Cefpodoxime Proxetil 200 mg PO BID #8 tablet 09/15/16 Rx Tiotropium Inhalation Cap 18 mcg INH RTDAILY #1 inhaler 09/15/16 Rx [Spiriva Inhalation Cap] Follow-up with PCP next week Condition at discharge was stable for discharge Exam - Vitals Vital Signs: Vital Signs Temperature 97.1 F Temperature Source Temporal Artery Scan Pulse Rate [Apical] 100 Pulse Rate [Pulse Oximeter 95 Right] Pulse Rate 105 Respiratory Rate 18 Blood Pressure [Right Arm] 123/75 Blood Pressure [Left Arm] 129/70 Blood Pressure 100/56 Pulse Ox 87 Oxygen Flow Rate 1.5 Oxygen Delivery Method Room Air Height 5 ft 9 in Weight 143 lb 12.8 oz - General General Appearance: POSITIVE: No Acute Distress, Cooperative, Thin - Head Head Exam: POSITIVE: Normal Inspection - Eye Eye Exam: POSITIVE: Normal Appearance - ENT ENT Exam: POSITIVE: Normal Exam - Neck Neck Exam: POSITIVE: Normal Inspection - Respiratory Additional Respiratory Exam Details: Decreased air entry occasional wheeze heard. - Cardiovascular Cardiovascular Exam: POSITIVE: RRR - GI/Abdominal GI/Abdominal Exam: POSITIVE: Normal Bowel Sounds, Non Tender, Non Distended, Soft - Rectal Rectal Exam: POSITIVE: Deferred - External Exam: POSITIVE: Deferred - Extremities Extremities Exam: POSITIVE: Normal Inspection - Back Back Exam: POSITIVE: Normal Inspection - Neurological Neurological Exam: POSITIVE: Alert, Oriented x 3, CN II-XII Intact, No Facial Droop, Moves All Extremities Equally - Psychiatric Psychiatric Exam: POSITIVE: Normal Affect Patient Problems - Patient Problem List (1) COPD exacerbation Status: Acute (2) Left lower lobe pneumonia Status: Acute Qualifiers: Pneumonia type: due to unspecified organism Qualified Description: Pneumonia of left lower lobe due to infectious organism Qualifier Code(s) : (J18.1) Lobar pneumonia, unspecified organism (3) Leukocytosis Status: Acute Qualifiers: Leukocytosis type: bandemia Qualified Description: Bandemia Qualifier Code(s): (D72.825) Bandemia
== END 2016-09-15 12:24 | disposition home or self-care (01) | DRG 194 ==
LOC: ER 08:41 → MED/SURG 11:31
PROVIDERS: ADMIT Family Medicine; ATTEND Family Medicine
DX: J22 Unspecified acute lower respiratory infection (principal); Z72.0 Tobacco use; J18.9 Pneumonia, unspecified organism; J44.1 Chronic obstructive pulmonary disease with (acute) exacerbation; C79.51 Secondary malignant neoplasm of bone; C61 Malignant neoplasm of prostate; I72.2 Aneurysm of renal artery; D72.829 Elevated white blood cell count, unspecified
CPT/HCPCS: 36415 ×2; 71010; 71275; 80053; 82803; 83605; 83735; 83880; 84484; 85007; 85379; 85610; 87040; 93005; 93010; 94640; 96365; 96366; 99284 ×2; J0696; J1100; J7620; 71020; 80048; 93306; 94761; G0103; J1650; J7030; J7050; J8540

== ENCOUNTER → 2016-09-21 | Outpatient (CLI) | payer OTHER, BC ==
[2016-09-21 10:30] LABS: BASOPHILS # (AUTO) 0.05 10*3/UL; BASOPHILS % (AUTO) 0.7 % (0-1); EOSINOPHILS # (AUTO) 0.01 10*3/UL; EOSINOPHILS % (AUTO) 0.1 % (0-8); HEMATOCRIT 34.9 % (42.0-52.0); HEMOGLOBIN 11.2 g/dL (14.0-18.0); LYMPHOCYTES # (AUTO) 1.33 10*3/uL; MEAN CORPUSCULAR HEMOGLOBIN 29.9 PG (27-31); MEAN CORPUSCULAR HGB CONC 32.1 g/dL (33-37); MEAN CORPUSCULAR VOLUME 93.1 FL (80-90); MEAN PLATELET VOLUME 9.1 FL (7.4-12.2); MONOCYTES # (AUTO) 0.93 10*3/UL (0.3-0.8); MONOCYTES % (AUTO) 12.7 % (5-15); NEUTROPHILS # (AUTO) 4.77 10*3/UL; NEUTROPHILS % (AUTO) 65.4 % (50-80); RED BLOOD COUNT 3.75 10^6/uL (4.70-6.10)
[2016-09-21 10:33] LABS: PLATELET MORPHOLOGY COMMENT NORMAL MORPHOLOGY (NORM); RBC MORPHOLOGY COMMENT NORMAL MORPHOLOGY (NORM); WBC MORPHOLOGY COMMENT NORMAL MORPHOLOGY (NORM)
== END ==
LOC: MOB LAB 09:28
PROVIDERS: ATTEND Nurse Practitioner Family
DX: Z51.89 Encounter for other specified aftercare (principal); J18.1 Lobar pneumonia, unspecified organism; J44.9 Chronic obstructive pulmonary disease, unspecified; B37.0 Candidal stomatitis; Z72.0 Tobacco use
CPT/HCPCS: 36415; 85025; 99214